=== PATIENT | female | born 1940 | race Asian ===

== ENCOUNTER 2018-08-17 05:49 | Day surgery (SDC) | payer MEDICARE, OTHER ==
[2018-08-17] MEDS: CYCLOPENTOLATE/PHENYLEPH 2 ML OPH OPER (06:06)
[2018-08-17] MEDS: DICLOFENAC 0.1% 2.5 ML OPH OPER (06:06)
[2018-08-17] MEDS: TROPICAMIDE 1% 15 ML OPH OPER (06:06)
[2018-08-17] MEDS: MOXIFLOXACIN 0.5% 3 ML OPH OPER (06:07)
[2018-08-17] MEDS ORDERED: SOD CHLORIDE 0.9% 1,000 ML IV (06:30)
[2018-08-17] MEDS ORDERED: GENTAMICIN 80 MG INJ (06:53)
[2018-08-17] MEDS ORDERED: EPINEPHrine 1 MG INJ (06:54)
[2018-08-17] MEDS ORDERED: PROPOFOL 20 ML (07:22)
[2018-08-17] MEDS: LIDOCAINE 4% (MPF) 5 ML INJ (07:49)
[2018-08-17] MEDS: TETRACAINE 0.5% 4 ML OPH (07:49)
[2018-08-17] MEDS: CARBACHOL 0.01% 1.5 ML OPH INJ (07:49)
[2018-08-17] MEDS: NA HYALURONATE/CHONDROITIN 0.5 ML SYG LEFT EYE (07:50)
[2018-08-17] MEDS: DEXAMETHASONE 4 MG/ML 1 ML INJ (07:50)
[2018-08-17] MEDS: CEFAZOLIN 1 GM INJ (07:51)
[2018-08-17] MEDS ORDERED: LIDOCAINE 2% (SDV) 5 ML INJ (08:10)
[2018-08-17] MEDS ORDERED: NA HYALURONATE/CHONDROITIN 0.5 ML SYG (08:18)
[2018-08-17] MEDS ORDERED: LABETALOL HCL 20MG INJ (08:26)
[2018-08-17] MEDS ORDERED: EPHEDrine SULFATE 50 MG/5 ML SYG IV (08:30)
[2018-08-17] MEDS ORDERED: MIDAZOLAM 1 MG/ML 2 ML INJ IV (08:30)
[2018-08-17] MEDS ORDERED: DIPHENHYDRAMINE 50 MG INJ IV (08:30)
[2018-08-17] MEDS ORDERED: OXYCODONE/ACETAMINOPHEN (5/325) TAB PO ×2 (08:30)
[2018-08-17] MEDS ORDERED: FENTAnyl 50 MCG/ML VIAL IV ×3 (08:30)
[2018-08-17] MEDS ORDERED: ALBUTEROL 0.083% (NEB) 2.5 MG/3 ML AMP HHN (08:30)
[2018-08-17] MEDS ORDERED: hydrALAzine 20 MG INJ IV (08:30)
[2018-08-17] MEDS: LABETALOL HCL 20MG INJ IV (08:31)
[2018-08-17] MEDS: ONDANSETRON 4 MG INJ IV (08:41)
== END 2018-08-17 09:55 | disposition home or self-care (01) ==
LOC: SDS 05:49
DX: H25.012 Cortical age-related cataract, left eye (principal); I10 Essential (primary) hypertension; E11.9 Type 2 diabetes mellitus without complications; E78.5 Hyperlipidemia, unspecified
CPT/HCPCS: 66984; 82962